=== PATIENT | female | born 1990 | race Caucasian/White ===

== ENCOUNTER 2025-06-12 10:31 | Day surgery (SDC) | payer OTHER ==
[2025-06-09 15:34] LABS: Absolute Lymphocytes (CBC) 3.6 K/uL (0.7-4.9); Hematocrit 34.9 % (36.0-45.0); Hemoglobin 11.7 g/dL (12.0-15.0); MCH 28.2 pg (27.0-35.0); MCHC 33.6 g/dL (32.0-36.0); MCV 83.8 fL (80-100); MPV 9.7 fL (7.6-11.3); Nucleated RBC Absolute Count 0.0 (0-0); Nucleated Red Blood Cells % 0.1 % (0-0); RBC Red Blood Cell Count 4.16 M/uL (3.86-4.86); White Blood Count 7.40 thou/uL (4.3-10.9)
[2025-06-09 15:37] LABS: Sqamous Epithelial <5 /HPF (None Seen); Urine Culture Reflex Order NOT NEEDED; Urine Microscopic Reflex YN ORDER UMIC; Urine WBC Clump Rare /HPF (None Seen); Urine Yeast (Budding) Trace /HPF (None Seen)
[2025-06-09 15:50] LABS: Anion Gap 9.0 mEq/L (5.0-15.0); BUN Blood Urea Nitrogen 11.0 mg/dL (7-18); Glucose Level 74.0 mg/dL (74-106); Potassium 4.0 mEq/L (3.5-5.1)
[2025-06-12] MEDS: SCOPOLAMINE HYDROBROMIDE PATCH TD ONE (11:10)
[2025-06-12] MEDS ORDERED: Ringers Lactate 1,000 ML IV ONE (11:11)
[2025-06-12] MEDS ORDERED: Levofloxacin 750mg IV 0 MG/0 ML BAG IV ONE (11:12)
[2025-06-12] MEDS ORDERED: LIDOCAINE 2% MPF 5 ML VIAL ONE ×2 (11:46)
[2025-06-12] MEDS ORDERED: ROCURONIUM 50 MG/5 ML VIAL IV ONE (11:46)
[2025-06-12] MEDS ORDERED: FENTANYL CITR 100 MCG/2 ML ONE (11:46)
[2025-06-12] MEDS ORDERED: ONDANSETRON 4 MG/2 ML VIAL ONE (11:46)
[2025-06-12] MEDS ORDERED: MIDAZOLAM HCL 2 MG/2 ML INJ ONE (11:46)
[2025-06-12] MEDS: LIDOCAINE HCL/EPINEPHRINE 20 ML MDV ONE (13:07)
[2025-06-12] MEDS: Levofloxacin500mg IV 500 MG/100 ML BAG IV ONE (13:07)
[2025-06-12] MEDS ORDERED: NS 0.9% VIAL 10 ML ONE ×2 (13:24→13:53)
--- NOTE | 2025-06-12 13:51 | P.OP ---
Heat Treat Inspector: Elizabeth Thompson (seperate procedure, tandem) Preoperative diagnosis: Chronic Cholecystitis with Cholelithiasis Postoperative diagnosis: Chronic Cholecystitis with Cholelithiasis Primary procedure: Laparoscopic Cholecystectomy with ICG Cholangiography Anesthesia: GETA + Local Estimated blood loss: <2cc Specimen: Gallbladder Findings: Chronic Cholecystitis with Cholelithiasis Complications: None Implants: Qasim Powder Transferred to: Other (In OR for Next procedure - see Dr. Thompson note) Condition: Good
[2025-06-12] MEDS ORDERED: VECURONIUM 10 MG/VIAL IV ONE (13:53)
[2025-06-12] MEDS: BUPIVACAINE 0.25% PF 30 ML VIAL ONE (14:25)
[2025-06-12] MEDS ORDERED: NEOSTIGMINE 1 MG/ML -10 ML VIAL ONE (15:12)
[2025-06-12] MEDS ORDERED: GLYCOPYRROLATE 0.2 MG/ML SYR ONE (15:12)
--- NOTE | 2025-06-12 15:26 | OP ---
Date of Procedure: 06/12/2025 Surgeon: Walter Conway MD, Preoperative Diagnosis: Chronic cholecystitis with cholelithiasis. Postoperative Diagnosis: Chronic cholecystitis with cholelithiasis. Procedure Performed: Laparoscopic cholecystectomy with indocyanine green cholangiography. Anesthesia: General endotracheal plus local with 1% lidocaine. Estimated Blood Loss: Less than 2 cc. Specimen: Gallbladder. Findings: Chronic cholecystitis with cholelithiasis. Significant inflammatory changes in the right lower quadrant close to position of duodenum to Cholo pouch of gallbladder. Complications: None. Implants: Qasim hemostatic powder. The patient remained in the OR for the next procedure which will be performed by Dr. Elizabeth Thompson . Please see Dr. Thompson's note for full details. Condition: Good at the end of my portion of the procedure. Procedure In Detail: After informed consent was obtained, patient was brought to the operating room, prepped and draped in the usual sterile fashion. After adequate anesthesia was achieved, I made a supraumbilical incision down to subcutaneous tissues. A 5-mm 0-degree optical trocar was introduced into the abdomen without incident or complication. Insufflation was obtained to 15 mmHg, at this ti me. There was no injury to vital structures upon entry into the abdomen. Two additional trocars wer e placed, one in the epigastrium, and one in the right upper quadrant. Both of these were similarly anesthetized, and sharply incised. A 5 mm trocar was placed under direct vision without incident or complication. The umbilical trocar was then upsized to a 12 mm under direct vision without incident or complication. The patient positioned head up right-side up position. Ratcheted grasper was used to grasp the patient's gallbladder, placed it towards the right shoulder and dissection continued karyn n to remove significant adhesions off the anterior surface of the gallbladder between the omentum and duodenum down to the Cholo pouch of the gallbladder. After this was performed, two structures we re identified as both cystic duct and cystic artery. These dissection continued down to encircle two structures and identify the both cystic duct and cystic artery. 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 After these structures were skeletonized and a critical view of safety was obtained, at this point, I performed indocyanine green cholangiography to confirm the anatomy as described. A t this point, I placed double titanium clips doubly on the proximal side and singly on the distal lelo e of both cystic duct and cystic artery. These structures were then ligated between Endo Maye. At this point, the gallbladder was removed from the hepatic fossa without incident or complication. Th ere was no spillage of bile, at this point. The gallbladder was placed in an EndoCatch bag, removed through the umbilical trocar site, sent off for pathologic examination. At this point, the abdomen w as re-insufflated. At this point, I irrigated the trocars. The patient remained in this position, a t this point. I irrigated the hepatic bed, and fulguration was required in the midportion of the hep atic bed. At this point, I performed indocyanine green angiography once again and saw no evidence of bile leakage. At this point, I then sprayed Qasim hemostatic powder as some fulguration was requir ed to the midportion of the hepatic fossa. After Qasim was sprayed, at this point, I sucked out the effluent. At this point, the patient was positioned back in neutral position. Remaining effluent s uctioned out. We then desufflated the abdomen under direct vision without incident or complication. At this point, the 2 trocars in the epigastric and the right upper quadrant were removed. However, the umbilical trocar remained in place, at this point. I removed the 5 mm trocars and copiously irri gated these 2, and closed these incisions with 4-0 Monocryl in a running fashion. Dermabond was plac ed over top. At this point, Dr. Thompson took over the procedure and re-insufflation was obtained, a t this point, through the supraumbilical trocar. Please see Dr. Thompson's note for full details reg arding the remainder of her operation. At this portion, I exited the room. The patient was in good condition. All counts were correct at the end of the case. XAVIER/POLO Voice ID: [id number] Report ID: [id number]
[2025-06-12] MEDS ORDERED: SUGAMMADEX SODIUM 200 MG/2 ML VIAL IV ONE (15:27)
[2025-06-12] MEDS: Ringers Lactate 1,000 ML IV ONE (15:30)
[2025-06-12] MEDS: HYDROMORPHONE HCL 1 MG/ML INJ ONE (15:47)
[2025-06-12] MEDS ORDERED: IBUPROFEN 200 MG TAB PO PRN (15:48)
[2025-06-12] MEDS ORDERED: HOME MED 1 EA UNK (Ondansetron Hcl [Ondansetron Hcl] 4 MG Tablet) PO PRN (15:50)
[2025-06-12] MEDS: FENTANYL CITR 100 MCG/2 ML ONE (15:56)
[2025-06-12] MEDS: HYDROMORPHONE HCL 0.5 MG/0.5 ML INJ ONE (16:07)
[2025-06-12] MEDS: ONDANSETRON 4 MG/2 ML VIAL ONE (16:35)
[2025-06-12] MEDS: PROMETHAZINE INJ 25 MG/ML AMP ONE (17:22)
[2025-06-12 18:03] VITALS: BP 111/63; TEMP 99; O2SAT 94
--- NOTE | 2025-06-14 06:27 | OP ---
Date of Procedure: 06/12/2025 Surgeon: Elizabeth Thompson MD Brief Writer: Namita Jacobsen. Preoperative Diagnoses: Pelvic pain, deep dyspareunia. 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 Procedures Performed: 1. Diagnostic hysteroscopy and D and C. 2. Diagnostic laparoscopy, bilateral salpingectomy. 3. Endometriosis extensive excision including rectovaginal septum endometriosis excision. 4. Left ureterolysis. Anesthesia: General endotracheal. Estimated Blood Loss: Minimal. Complications: None. Drains: None. Findings: Deep infiltrating endometriosis of the left lateral wall. There was a small amount of sup erficial endometriosis in the right lateral wall and then deep infiltrating endometriosis of the post erior rectovaginal septum, which is the posterior vaginal wall, right pararectal space, and right [place] rosacral ligament. Condition: Stable. Indications: The patient is a 34-year-old female presenting with significant deep dyspareunia, right upper quadrant pain, pelvic pain. She was evaluated with transvaginal ultrasound, all General Surge ry workup. Discussed the different options of treatment including medical and surgical for my proced ures. She wanted to proceed with surgical management as the pain has been significant. Endometriosi s excision and all pelvic structures and sidewalls were all reviewed. She also was consented for a l aparoscopic cholecystectomy with Dr. Conway. She was re-consented in the preoperative area, taken t o the operating room. Description Of Procedure: She was placed in supine fashion on the operating table where general anes thesia was given. She was placed in a dorsal lithotomy position using Farooq stirrups. The patient h ad a laparoscopic cholecystectomy prior to my procedure, after which all the ports were closed except ing the abdominal supraumbilical port, which was left intact and the patient was redraped. After shaka ping the central portion of the abdomen sterile, the rest of the abdomen was prepped with ChloraPrep, the vulva, vagina, and perineum with Betadine. The patient was draped in a sterile fashion. Time-o ut was done for my portion of the procedure at this time and procedure was started. Diagnostic hysteroscopy and D and C: A speculum was placed to expose the cervix. Anterior lip grasp ed with single-tooth tenaculum. A SlimLine diagnostic hysteroscope was used to traverse the cervical canal under direct visualization into the uterine cavity. Endometrium was inspected. There was sig nificantly thickened area in 1 portion of the posterior wall. Rest of it was unremarkable. The scop e was removed. D and C was performed and a diagnostic uterine manipulator was introduced and fixed i n place. Then, I proceeded with placing a Horn catheter to drain the bladder and this was attached to a drainage bag and left to gravity. The supraumbilical port was used. After adequate insufflation, a left lower quadrant and suprapubic 5 ports each were placed after injecting 0.25% Marcaine at the fascia and skin on both sides. Once t he ports were positioned, position. Bilateral salpingectomy: LigaSure was used to take down both of the tubes and the fimbriated end tow ards the cornual end and these were retrieved and handed off for permanent specimen. Endometriosis excision: Posterior vaginal wall endometriosis was approached starting at the uterosac ral ligament. The excision was performed on the superior aspect. Once the peritoneum was opened up, it superiorly dissected open the right pararectal space superior to the implant. Then, the implants were excised laterally from the uterosacral ligament, then coming down anteriorly to open the perito neum and the pararectal space. Septum was dissected from the pararectal space that was infiltrating to the level that definitely infiltrating the rectovaginal septum, so careful dissection w as performed, all the tissues were excised, at least a 3 x 3 cm area was excised was taken down, the integrity of the posterior wall was . Once the entire implants were removed, th en attention was directed to the superficial implants of the right lateral wall. These were excised as they were superficial and handed off. The left lateral wall and of both. L ateral wall dissection was started in the lateral portion above the ureter, starting at the level of the pelvic brim and superiorly opened up into the normal peritoneal space, then all the way down to t he ureter. The ureter was dissected away from the peritoneum and the peritoneum was excised after ur eterolysis was performed. Ureterolysis: The ureters were carefully dissected from the peritoneum starting at the pelvic brim. The internal iliac muscles were identified, from the ureter some medially and laterally, t he ureter was skeletonized without devascularized and the sheath around the ureter was taken down to the level of the ureter tunnel. The uterine vessels were identified. The tunnel was identified and the ureter was dissected on the medial aspect of the lateral portion of the uterosacral ligament and once this was complete, then endometriosis excision was finished going along the left uter osacral ligament and taking down. There was excellent hemostasis . No evidence of any el ectrical, mechanical, or thermal injury to the ureters. Thorough irrigation and suction was performe d and all the gas was desufflated. . Once all the ports were removed, the patient was fla ttened out. The umbilical port was closed after with fascia picked up using 0 Vicryl figu re-of-eight suture and interrupted 4-0 Monocryl sutures at all skin incisions. Steri-Strips and Tega derms were placed. Horn and diagnostic manipulator were removed. Instrument, needle, an d sponge counts were correct at the end of the case. The patient tolerated the procedure well and mariana moffett was recovered from anesthesia and taken to PACU in stable condition. Her was debriefed about her procedure. The plan will be to follow her up in 1 week and then in 3 months. JOSE/POLO Voice ID: [id number] Report ID: [id number]
== END 2025-06-12 18:40 | disposition home or self-care (01) ==
LOC: OR 10:31
PROVIDERS: ATTEND Obstetrics & Gynecology
PROC: 0WBF4ZZ Excision of Abdominal Wall, Percutaneous Endoscopic Approach (ICD-10-PCS; 2025-06-12)
PROC: 0DBP4ZZ Excision of Rectum, Percutaneous Endoscopic Approach (ICD-10-PCS; 2025-06-12)
PROC: 0TN74ZZ Release Left Ureter, Percutaneous Endoscopic Approach (ICD-10-PCS; 2025-06-12)
PROC: 0FT44ZZ Resection of Gallbladder, Percutaneous Endoscopic Approach (ICD-10-PCS; 2025-06-12)
PROC: BF50200 Other Imaging of Bile Ducts using Fluorescing Agent, Indocyanine Green Dye, Intraoperative (ICD-10-PCS; 2025-06-12)
PROC: 0UDB8ZX Extraction of Endometrium, Via Natural or Artificial Opening Endoscopic, Diagnostic (ICD-10-PCS; principal; 2025-06-12 14:30)
PROC: 0UT7FZZ Resection of Bilateral Fallopian Tubes, Via Natural or Artificial Opening With Percutaneous Endoscopic Assistance (ICD-10-PCS; 2025-06-12 14:30)
DX: N94.12 Deep dyspareunia (principal); R10.2 Pelvic and perineal pain; K80.10 Calculus of gallbladder with chronic cholecystitis without obstruction; N80.4 Endometriosis of rectovaginal septum and vagina; N80.C19 Endometriosis of the anterior abdominal wall, unspecified depth
CPT/HCPCS: 93005; 85025; 81001; 80048; 36415; 86900; 86850; 86901; 88304; 88305 ×2; 58558; 58700; 57061; 58662; 50949; 47563; J2550; A4216 ×2; J2704; J2710; J2003 ×2; J2250; J3010 ×2; J1100; J1171 ×2; J2405 ×2; J7120 ×2; 88302